=== PATIENT | male | born 1985 | race Caucasian/White ===

== ENCOUNTER 2020-04-08 18:22 | Emergency (ER) | payer OTHER ==
[~2020-04-08] VITALS: Ht 177.8 cm; Wt 81.6 kg
--- NOTE | 2020-04-08 18:39 | NUR ---
BIBS TO ER BED 12. AAOX4. NOT IN RESP DISTRESS. AMBULATORY. CAME IN FOR L ELBOW ABCESS X 2 WEEKS. PT ADMITS TO INJECTING IV DRUGS. NOTED REDNESS AND SWELLING. FLORENTINO EM AT BEDSIDE FOR EVAL;
[2020-04-08] MEDS ORDERED: LIDOCAINE 1%-EPI 1:100,000 20 ML VIAL ONE (18:49)
--- NOTE | 2020-04-08 18:56 | NUR ---
FLORENTINO EM AT THE BEDSIDE FOR I&D
[2020-04-08] MEDS ORDERED: LIDOCAINE 1%-EPI 1:100,000 20 ML VIAL TP ONE (19:00)
[2020-04-08 19:25] VITALS: BP 148/86
== END 2020-04-08 19:25 | disposition home or self-care (01) ==
LOC: ER 18:28
DX: L02.414 Cutaneous abscess of left upper limb (principal); F11.23 Opioid dependence with withdrawal; F19.10 Other psychoactive substance abuse, uncomplicated; Z86.19 Personal history of other infectious and parasitic diseases
CPT/HCPCS: 10060; 76536; 99284; A6403; A6407; J3490

== ENCOUNTER 2020-04-14 09:30 | Emergency (ER) | payer OTHER ==
[~2020-04-14] VITALS: Ht 177.8 cm; Wt 83.9 kg
[2020-04-14 09:37] VITALS: BP 125/63
== END 2020-04-14 09:42 | disposition home or self-care (01) ==
LOC: ER 09:35
DX: Z48.01 Encounter for change or removal of surgical wound dressing (principal); F90.9 Attention-deficit hyperactivity disorder, unspecified type